=== PATIENT | female | born 1965 | race Caucasian/White ===

== ENCOUNTER → 2017-07-28 11:17 | Outpatient (CLI) | payer OTHER | END | disposition home or self-care (01) | LOC: D.RAD 11:17 | DX: M54.9 Dorsalgia, unspecified (principal) ==

== ENCOUNTER 2018-06-09 18:16 | Emergency (ER) | payer SELFPAY ==
[~2018-06-09] VITALS: Ht 157.5 cm; Wt 98.6 kg
[2018-06-09 18:27] VITALS: Ht 157.5 cm; Wt 98.6 kg
[2018-06-09] MEDS ORDERED: CELEXA10 MG PO (18:31)
[2018-06-09] MEDS ORDERED: BUPROPION XL300 MG PO (18:31)
[2018-06-09] MEDS ORDERED: OMEPRAZOLE40 MG PO (18:31)
[2018-06-09] MEDS ORDERED: EZFE 200200 MG PO (18:31)
[2018-06-09] MEDS ORDERED: BUSPAR 15 MG TA15 MG PO (18:32)
[2018-06-09] MEDS ORDERED: ROBAXIN-750750 MG PO (20:46)
[2018-06-09 21:15] VITALS: BP 149/65
== END 2018-06-09 21:15 | disposition home or self-care (01) ==
LOC: D.ER 18:16
DX: S29.012A Strain of muscle and tendon of back wall of thorax, initial encounter (principal); V43.52XA Car driver injured in collision with other type car in traffic accident, initial encounter; Y93.89 Activity, other specified; Y92.410 Unspecified street and highway as the place of occurrence of the external cause; S43.401A Unspecified sprain of right shoulder joint, initial encounter; S66.912A Strain of unspecified muscle, fascia and tendon at wrist and hand level, left hand, initial encounter; S66.911A Strain of unspecified muscle, fascia and tendon at wrist and hand level, right hand, initial encounter; R51 Headache; M54.2 Cervicalgia; K21.9 Gastro-esophageal reflux disease without esophagitis

== ENCOUNTER 2019-03-07 09:00 | Day surgery (SDC) | payer OTHER ==
[~2019-03-07] VITALS: Ht 157.5 cm; Wt 105.0 kg
[~2019-03-07 09:00] MED LIST: BUPROPION XL300 MG PO; BUSPAR 15 MG TA15 MG PO; CELEXA10 MG PO; EZFE 200200 MG PO; OMEPRAZOLE40 MG PO; ROBAXIN-750750 MG PO
[2019-03-07 09:36] LABS: BASOPHILS 0.5 % (0-2); HEMATOCRIT 36.7 % (36.0-48.0); HEMOGLOBIN 11.6 g/dL (12-16); IMMATURE GRANULOCYTES 0.2 % (0-5); LYMPHOCYTES 30.7 % (15-50); MCH 24.5 pg (26.0-34.0); MCHC 31.6 g/dL (31.0-37.0); MCV 77.6 fL (80.0-100.0); MONOCYTES 5.6 % (2-11); PLATELET COUNT 237 10x3/uL (130-400); RBC 4.73 10x6/uL (4.00-5.40); RDW 14.7 % (11.5-14.5); WBC 8.7 10x3/uL (4.8-10.8)
[2019-03-07] MEDS ORDERED: REGLAN10 MG PO (10:40)
[2019-03-07] MEDS ORDERED: LISINOPRIL5 MG PO (10:41)
[2019-03-07 10:51] VITALS: BP 137/71; Ht 157.5 cm; Wt 105.0 kg
--- NOTE | 2019-03-07 13:33 | NUR ---
1300 IV DC'D. CATHETER INTACT. PRESSURE HELD UNTIL BLEEDING STOPPED. BANDAID APPLIED.
--- NOTE | 2019-03-07 18:50 | OP ---
PATIENT NAME: TRIXIE RIVERS MEDICAL RECORD: [id number] :69 LOCATION:[facility] ADMISSION DATE: SURGEON: MARY DONIS MD DATE OF OPERATION: 03/07/2019 PROCEDURE: EGD with biopsy. INDICATIONS: Ms. Rivers is a delightful 53-year-old woman, who is referred for further evaluation of hemoccult-positive stool (August 2018). She has had symptoms of heartburn, nausea and vomiting, which has been present for several years and occurs intermittently. Most recently, she has been on omeprazole 40 mg twice a day and Reglan 10 mg twice a day with moderate relief of her symptoms. Over the past several years, she has intermittent episodes of diarrhea, which she has attributed to irritable bowel syndrome. Her labs today are remarkable for hemoglobin of 11.6 with an MCV of 77.6. She presents for outpatient EGD. PREMEDICATIONS: Propofol 200 mg (BMI of 42). INSTRUMENT: Olympus video gastroscope GIF-H190. PROCEDURE AND FINDINGS: After receiving informed consent, Ms. Rivers's posterior pharynx was anesthetized with Cetacaine spray, placed in left lateral decubitus position, sedated as per anesthesia. After achieving adequate level of sedation, gastroscope was introduced per orally and advanced into the duodenum without difficulty. The esophageal mucosa was without erythema, ulcers, strictures, or masses and appeared normal down the GE junction. Gastric mucosa was notable for mild prepyloric and antral erythema, and antral biopsies were obtained to rule out Helicobacter pylori. No lesions were seen along the incisura, cardia or fundus nor in the body of the stomach. Pylorus was patent and competent. Duodenal mucosa was without erythema or ulcers, appeared normal through the second portion. Biopsies were taken from the second portion of the duodenum to rule out celiac disease. As gastroscope was withdrawn, biopsies were taken from the distal third of the esophagus. Ms. Rivers tolerated procedure well. No immediate complications. ASSESSMENT: 1. Mild gastritis. 2. Microcytic anemia. 3. Hemoccult-positive stool. RECOMMENDATIONS: 1. Follow up histopathology. 2. Continue omeprazole 40 mg twice a day and Reglan 10 mg b.i.d. 3. Discontinue smoking. 4. Colonoscopy as scheduled. TRANSINT:[id number] Voice Confirmation ID: [id number] DOCUMENT ID: [id number] OPERATIVE REPORT [id number] TRIXIE RIVERS TERRI MD at 1850 CC: JUNIOR LERMA MD [id number] DICTATION DATE: 03/07/19 1222 RESEARCH INSTRUCTOR: 03/07/[address] [facility] 03/07/19 [facility] [address] [id number]
== END 2019-03-07 13:23 | disposition home or self-care (01) ==
LOC: D.OPS 09:00
PROVIDERS: ATTEND Internal Medicine Gastroenterology
DX: R11.2 Nausea with vomiting, unspecified (principal); D64.9 Anemia, unspecified; K29.70 Gastritis, unspecified, without bleeding

== ENCOUNTER 2019-03-30 10:47 | Day surgery (SDC) | payer OTHER ==
[~2019-03-30] VITALS: Ht 157.5 cm; Wt 102.7 kg
[~2019-03-30 10:47] MED LIST changes: +LISINOPRIL5 MG PO; +REGLAN10 MG PO
[2019-03-30 11:28] LABS: BASOPHILS 0.5 % (0-2); EOSINOPHILS 9.6 % (0-7); HEMATOCRIT 36.1 % (36.0-48.0); HEMOGLOBIN 11.7 g/dL (12-16); IMMATURE GRANULOCYTES 0.3 % (0-5); LYMPHOCYTES 33.8 % (15-50); MCH 24.8 pg (26.0-34.0); MCHC 32.4 g/dL (31.0-37.0); MCV 76.6 fL (80.0-100.0); MEAN PLATELET VOLUME 10.4 fL (7.4-10.4); MONOCYTES 5.7 % (2-11); NEUTROPHILS 50.1 % (40-80); PLATELET COUNT 244 10x3/uL (130-400); RBC 4.71 10x6/uL (4.00-5.40); RDW 15.5 % (11.5-14.5); WBC 7.9 10x3/uL (4.8-10.8)
[2019-03-30 11:34] LABS: ALBUMIN 3.7 g/dL (3.4-5.0); ALKALINE PHOSPHATASE 112 U/L (46-116); ALT (SGPT) 29 U/L (10-68); BILIRUBIN - TOTAL 0.39 mg/dL (0.2-1.3); CALC OSMOLALITY 273 mosm/kg (275-300); CARBON DIOXIDE 26.1 mmol/L (21.0-32.0); CHLORIDE - SERUM 105 mmol/L (98-107); CREATININE - SERUM 0.8 mg/dL (0.6-1.3); GLUCOSE 102 mg/dL (74-106); POTASSIUM - SERUM 3.6 mmol/L (3.5-5.1); PROTEIN - SERUM 7.3 g/dL (6.4-8.2); SODIUM 138 mmol/L (136-145); UREA NITROGEN 6 mg/dL (7-18); eGFR NON AFRICAN AMERICAN 80 mL/min (90-120)
[2019-03-30 12:07] VITALS: BP 130/86; Ht 157.5 cm; Wt 102.7 kg
--- NOTE | 2019-03-30 13:40 | NUR ---
1330 LAB NOTIFIED OF TSH AND T4 THAT WAS ORDERED BY DR DONIS. LAB WILL BE RUN ON PT'S BLOOD THAT IS IN LAB FROM EARLIER DRAW. PT C/O JOHNSON AND TYLENOL GIVEN ORDERED. PT PAIN LEVEL IS 8 FOR JOHNSON AND A 5 FOR ABDOMINAL PAIN. PT ENCOURAGED TO ATTEMPT TO PASS FLATUS.
[2019-03-30 13:57] LABS: T4 THYROXINE 8.6 ug/dL (4.7-13.3); THYROID STIMULATING HORMONE 0.73 uIU/mL (0.36-3.74)
--- NOTE | 2019-03-30 13:58 | NUR ---
1345 IV DC'D. CATHETER INTACT. NO BLEEDING. BANDAID APPLIED. PT STATES HER ABDOMINAL PAIN HAS DECREASED AFTER PASSING FLATUS TO 2 ON THE PAIN SCALE.
--- NOTE | 2019-03-30 13:59 | NUR ---
1359 PT DRESSED AND WAITING ON REPORT FROM DR DONIS.
--- NOTE | 2019-03-30 16:59 | OP ---
PATIENT NAME: TRIXIE RIVERS MEDICAL RECORD: [id number] :69 [facility] DATE: SURGEON: MARY DONIS MD DATE OF OPERATION: 03/30/2019 PROCEDURE: Colonoscopy with biopsy and polypectomy. REFERRING PHYSICIAN: Serena Kaba. INDICATIONS: Ms. Rivers is a very pleasant 53-year-old woman with a history of heartburn, nausea, vomiting, change in bowel habits, Hemoccult positive stools and microcytic anemia. She had an EGD on 03/07/2019 that showed mild gastritis (gastric biopsies were negative for Helicobacter pylori, duodenal biopsies showed mild chronic duodenitis, and distal esophageal biopsy showed esophagitis, chronic mild consistent with reflux type injury). She presents for outpatient colonoscopy. PREMEDICATIONS: Total IV anesthesia (propofol 500 mg). BMI is 42. INSTRUMENT: Olympus video colonoscope, pediatric. PROCEDURE AND FINDINGS: After receiving informed consent, Ms. Rivers was placed in left lateral decubitus position and sedated as per anesthesia. After achieving adequate level of sedation, digital rectal exam was performed that showed no external hemorrhoidal tags, fissures or fistulas, normal sphincter tone, no palpable rectal masses. Colonoscope was introduced per rectally and advanced to the cecum without difficulty. The cecum, IC valve, and appendiceal orifice were identified and appeared normal. As the colonoscope was withdrawn, careful inspection was made of the tavarez of the colon. Overall mucosa had normal vascular and fold pattern. There was minimal proximal ascending mucosal erythema and biopsies were obtained from the ascending colon to rule out microscopic colitis. In the transverse colon was a 0.3 cm sessile polyp removed with biopsy forcep technique. In the descending colon was a 0.5 cm sessile polyp removed with biopsy forceps technique. There were few diverticula seen in the sigmoid and transverse colon. Retroflexion in the rectum showed mild internal hemorrhoids. A good prep was present. No immediate complications. Ms. Rivers tolerated the procedure well. Withdrawal time was 9 minutes. Liquid was collected from the colon for study. ASSESSMENT: 1. Mild sigmoid and transverse colon diverticulosis. 2. Descending colon polyp status post polypectomy. 3. Transverse colon polyp, status post polypectomy. 4. Mild nonspecific erythema involving the ascending colon may be prep related, status post biopsy. 5. Microcytic anemia and Hemoccult positive stool secondary to mild internal hemorrhoids. RECOMMENDATIONS: 1. Follow up histopathology. 2. Avoid aspirin, nonsteroidal anti-inflammatory drugs and LUNA-2 inhibitors for 14 days post polypectomy. 3. High fiber diet. 4. Check T4 and TSH. 5. Surveillance colonoscopy in 3 years. OPERATIVE REPORT [id number] TRIXIE RIVERS TRANSINT:[id number] Voice Confirmation ID: [id number] DOCUMENT ID: [id number] MARY DONIS MD at 1659 CC: SERENA KABA MD [id number] DICTATION DATE: 03/30/19 1320 CORE MAKER: 03/30/19 1511 [facility] 03/30/[id number] [place] [address]
== END 2019-03-30 14:28 | disposition home or self-care (01) ==
LOC: D.OPS 10:47
PROVIDERS: Anesthesiology; ATTEND Internal Medicine Gastroenterology
DX: K57.30 Diverticulosis of large intestine without perforation or abscess without bleeding (principal); K63.5 Polyp of colon; K64.8 Other hemorrhoids; Z01.812 Encounter for preprocedural laboratory examination